=== PATIENT | female | born 1990 | race Caucasian/White ===

== ENCOUNTER → 2022-10-01 10:20 | Outpatient (CLI) | payer MEDICAID, SELFPAY ==
[2022-10-01 10:58] LABS: Basophils # 0.1 K/mm3 (0-0.2); Basophils % 0.8 % (0.1-2.0); Eosinophils # 0.4 K/mm3 (0.0-0.4); Eosinophils % 4.8 % (0.1-12.0); Hematocrit 38.4 % (37.0-47.0); Hemoglobin 12.6 g/dL (12.2-16.2); Lymphocytes # 2.1 K/mm3 (0.7-4.5); Lymphocytes % 22.6 % (10-50); Mean Corpuscular HGB Conc 32.7 g/dL (31.8-35.4); Mean Corpuscular Hemoglobin 27.2 pg (27.0-31.2); Mean Corpuscular Volume 83.2 fl (81-99); Mean Platelet Volume 8.5 fl (7.4-10.4); Monocytes # 0.3 K/mm3 (0.1-1.0); Monocytes % 3.1 % (1.7-9.3); Neutrophils # 6.4 K/mm3 (1.8-7.8); Neutrophils % 68.6 % (37.0-80.0); Platelet Count 354 K/mm3 (142-424); Red Blood Count 4.62 M/mm3 (4.20-5.40); Red Cell Distribution Width 14.5 % (11.5-17.5); White Blood Count 9.3 K/mm3 (4.8-10.8)
[2022-10-01 11:20] LABS: Chloride 103 mmol/L (98-107); Potassium 4.3 mmoL/L (3.5-5.1); Sodium 137 mmol/L (136-145)
[2022-10-01 11:23] LABS: Alanine Aminotransferase 39 U/L (12-78); Albumin Level 4.3 g/dl (3.5-5.0); Albumin/Globulin Ratio 1.7 (1.1-1.8); Alkaline Phosphatase 77 U/L (38-126); Anion Gap 11.3 mEq/L (5-15); Aspartate Amino Transferase 41 U/L (14-36); Bilirubin,Total 0.2 mg/dl (0.2-1.3); Blood Urea Nitrogen 10 mg/dl (7-17); Calcium 8.9 mg/dl (8.4-10.2); Carbon Dioxide 27 mmol/L (22.0-30.0); Estimated Glomerular Filt Rate 142 ml/min (>60); GFR (African American) 172 ML/MIN (>60); Globulin 2.5 g/dL (1.3-3.2); Glucose 90 mg/dl (74-100); Total Protein,Serum 6.8 g/dl (6.3-8.2)
[2022-10-01 11:52] LABS: Thyroid Stimulating Hormone 1.23 uIU/mL (0.465-4.68)
[2022-10-01 13:26] LABS: Vitamin B12 480 pg/mL (239-931)
[2022-10-01 13:27] LABS: Folate 4.97 ng/mL
[2022-10-01 15:58] LABS: Hemoglobin A1C 5.2 % (4.0-6.0)
[2022-10-02 12:00] LABS: Rapid Plasma Reagin Ab Titer Non Reactive (NonRea<1:1)
[2022-10-25 00:06] LABS: Antinuclear Antibodies (ANA) Negative
== END ==
PROVIDERS: PCP General Practice; Visit Provider Nurse Practitioner Family
DX: G93.49 Other encephalopathy (principal); R53.83 Other fatigue; R68.89 Other general symptoms and signs; E66.3 Overweight; Z68.31 Body mass index [BMI] 31.0-31.9, adult; Z87.898 Personal history of other specified conditions
CPT/HCPCS: 80053; 82607; 82746; 83036; 84443; 85025; 86038; 86225; 86235; 86593

== ENCOUNTER → 2022-10-11 10:41 | Outpatient (CLI) | payer MEDICAID, SELFPAY ==
--- NOTE | 2022-10-11 10:42 | MR_ITS ---
FINAL REPORT CLINICAL HISTORY: eval for metastasis, atrophy, CVA, ischemia. early alzheimer's runs in her family. FINDINGS: Multiplanar MR imaging of the brain was performed without and with contrast. There is mild age-appropriate atrophy. Scattered foci of increased T2 signal are seen in the cerebral white matter that have a nonspecific appearance but likely represent mild chronic ischemic/gliotic changes. There is no evidence of intracranial hemorrhage or mass. No abnormal ventricular dilatation is identified. There is no evidence of shift of the midline structures. No abnormal extra-axial fluid collection is seen. No area of abnormal restricted diffusion is identified. The posterior fossa and brainstem have an unremarkable appearance. No abnormal contrast enhancement is seen. Normal major vessel vascular flow voids are seen. There is opacification of several right mastoid air cells. IMPRESSION: Mild atrophy and chronic ischemic/gliotic changes. No acute intracranial abnormality. Reviewed, Interpreted and Dictated by Johnny Guido III, MD Transcribed by Faith Pacheco Authenticated and [facility]
== END ==
PROVIDERS: PCP General Practice; Visit Provider Nurse Practitioner Family
DX: G93.40 Encephalopathy, unspecified (principal); H66.91 Otitis media, unspecified, right ear; H91.91 Unspecified hearing loss, right ear; R68.89 Other general symptoms and signs; Z82.0 Family history of epilepsy and other diseases of the nervous system; Z87.410 Personal history of cervical dysplasia
CPT/HCPCS: 70553; A9576